=== PATIENT | female | born 1995 ===

== ENCOUNTER 2024-09-13 14:02 | Emergency (ER) | payer MEDICAID, OTHER ==
[~2024-09-13] VITALS: Ht 165.1 cm; Wt 73.5 kg
[2024-09-13 14:37] VITALS: BP 112/70; PULSE 92; RESP 18; TEMP 97.9; O2SAT 97
[2024-09-13] MEDS ORDERED: AMPH10TA2 PO ×2 (15:07)
== END 2024-09-13 15:21 | disposition home or self-care (01) ==
LOC: ER 14:02
DX: F90.9 Attention-deficit hyperactivity disorder, unspecified type (principal); Z76.0 Encounter for issue of repeat prescription; Z79.899 Other long term (current) drug therapy